=== PATIENT | female | born 1990 ===

== ENCOUNTER → 2024-10-20 13:28 | Outpatient (BNVA) | payer OTHER, SELFPAY | PROVIDERS: PCP Internal Medicine; Visit Provider Physician Assistant Surgical ==

== ENCOUNTER 2025-01-01 08:12 | Outpatient (AMB) | payer OTHER, SELFPAY ==
[2025-01-01 10:15] VITALS: BMI 35.4
--- NOTE | 2025-01-01 10:15 | A.OFFVIS_ITS ---
VS Expanded 01/01/25 10:15 Height 5 ft 7 in Weight 226 lb 4 oz BMI 35.4 Body Fat % 40.9 Body Fat Mass 92.6 Fat Free Mass 133.6 Visceral Fat Rating 9 Body Water % 42.3 Body Water Mass 95.6 Basal Metabolic Rate/Score 1,869 Intake Visit Reasons: TV [employer] [facility]* Allergies No Known Allergies Allergy (Verified 01/01/25 10:16) Medication List - Last Reconciled 01/01/25 by Meño Barahona MD levonorgest-eth.estradiol-iron 0.1 mg-0.02 mg (21)/iron (7) 1 tab PO DAILY omeprazole 20 mg PO DAILY HPI HPI TV [employer] SH[employer]TER MWL*: Details: Start time: 10.11am, End time: 10.56am ?I spent 40 minutes speaking with the patient on the phone plus an additional 5 minutes reviewing and updating records for a total of 45 minutes HPI Comments Details: Previous weight loss efforts: Self diets and exercise Wakes up: 7am, Sleeps: 8.30pm Breakfast: 9am 3/wk: (2 eggs with vegetables) Lunch: skips Dinner: 5-6pm (chicken, fish, potatoes, rice, salad) Snacks: 1-2 before dinner (dried prunes/cherries, nuts, cheese) Exercise: has home treadmill Beverages: Coffee: none, Tea: 3/mth, Soda: none, Juice: none, ETOH: 1-2wk (2 glasses of wine) PFSH Medical History (Updated 01/01/25 @ 10:41 by Meño Barahona MD) Back pain GERD (gastroesophageal reflux disease) BMI 35.0-35.9,adult Obesity Surgical History (Updated 10/20/24 @ 13:49 by Elvia Trujillo CMA) History of back surgery Hx of plastic surgery Family History (Updated 10/20/24 @ 13:50 by Elvia Trujillo CMA) Mother Hypertension Father Diabetes Cancer Daughter No problems noted. Son No problems noted. Social History (Updated 10/20/24 @ 13:50 by Elvia Trujillo CMA) Alcohol intake: current Alcohol intake frequency: holidays/special occasions only Patient Tobacco Use Status: Never used Tobacco Telehealth Telehealth Telehealth Platform: Telephone Location of provider rendering services: practice address Location of patient: address on file Patient Identification confirmed using: Name, : Yes Telehealth method: voice only Patient verbally consented to treatment: Yes Patient verbally consented to billing insurance company: Yes Patient informed of any privacy concerns related to visit: Yes Minutes spent on Phone/Video with Pt.: 45 Assessment & Plan Assessment & Plan (1) Obesity: Code(s): E66.9 - Obesity, unspecified Category: Medical Qualifiers: Obesity type: due to excess calories Obesity classification: adult class 2 (BMI 35 - 39.9) Serious obesity comorbidity presence: with serious comorbidity Body mass index: BMI 35.0-35.9 Qualified Code(s): E66.812 - Obesity, class 2; E66.01 - Morbid (severe) obesity due to excess calories; Z68.35 - Body mass index [BMI] 35.0-35.9, adult Plan: 1.? Plan for lap sleeve gastrectomy. If diaphragmatic or ventral hernias are present at time of surgery, these will be repaired laparoscopically as well. I emphasized the importance of close follow-up, adherence to instructions and good communication. The surgery does not replace the need to change your lifestlyle which is the cause of the obesity problem. The surgery provides the motivation to try again to change your lifestyle, it reduces the appetite and make the transition to a better lifestyle easier and doubles the amount of weight you would lose compared to doing the lifestyle change without the surg tyson. You will need to be on a liquid diet with protein shakes for 2 weeks before surgery to maximize weight loss and boost your nutritional status to recover better from surgery and also for the first two weeks after surgery to let the stomach heal before we introduce other foods. After the first 2 weeks we will introduce protein bars and soft foods like scrambled eggs, cottage cheese and yogurt and after the 6th week will introduce meat, fish and cooked vegetables in small amounts. Over time you should be able to eat everything in small amounts. Side effects like nausea, vomiting, heartburn or abdominal pain are not common in the practice unless you are not following in the practice. This operation requires lifetime commitment to following in our practice and communication with me. You will much less weight and experience side effects if you don?t communicate or not following in the practice. Complications are rare and in our practice is about 1/10 of the national average. However, you can develop bleeding that may require transfusion (hasn?t happened for year in the practice), you may from complications (we did not have any deaths in the practice) and infections. Infections are usually a result of breakdown in communication or not understanding or following directions correctly. They are difficult to treat, they can happen during the first 6 weeks, they may require to be in the hospital for weeks or even months, not being able to eat by mouth and you may have drains and surgeries to try and correct the issue. Other risks and complications include possible conversion to an open procedure, leaks, small bowel obstruction, blood clots, cardiac, or pulmonary complications, as assistant terminal manager complications such as ulcers, insufficient weight loss and vitamin deficiencies. 1.??Nutritional counseling. Start with one premade PREMIER protein (buy at [employer] or [employer]) shake (mix 4oz of Premier mixed with 4oz low fat unsweetened almond milk each) at 8am-10am, one protein bar (Fit Crunch protein bar, buy at [employer], or [employer]) at 11am-1pm, another premade PREMIER protein shake (mix 4oz of Premier mixed with 4oz low fat unsweetened almond milk each) at 2pm-4pm, dinner at 5pm (8 forks of protein and 8 forks of salad/vegetables) and another [employer] protein bar at 7pm-9pm So you do 2 protein shakes, 2 protein bars and one meal per day. Meal to include lean meat (beef, fish, pork, turkey, chicken), or col[place] yogurt, or egg whites, or beans with a salad with olive oil and fruits (berries, pears, apples, kiwi). Avoid salt, breads, potatoes, rice, pasta, desserts. 3. Each shake would be drunk slowly, like coffee in a period of 2 hours. 4. Cut each bar in 4 pieces and eat each piece in 30min ?to make each bar last 2 hours. 5. I emphasized the importance of measuring accurately the food portion and measure it when serving the food in plate 6. The meal portions include 8 full-size forks of meat and 8 full-size forks of salad. You always eat the meat portion but you can replace up to 4 forks for salad/vegetables with rice, potatoes or pasta, or a fruit ?if you like. The less you do it the better weight loss will be. 7. One full-size fork is what it can be scooped on the fork without falling aside and not what can be bit with the fork. Use regular forks like those you find in a typical restaurant. 8.? Please send me weight measurements with your body composition scale. Always include your diet and exercise plan. 9. Start treadmill with an incline of 0.0 and speed of 2.5. Increase incline by 1 every 3 min to a max incline of 6.0, stay 3min at 6.0 and then return to 0.0 and repeat same steps until you burn 100 calories. Do this 3 times per day for 300 calories per day and daily for 2000 calories per weekin total. Goal is to burn 2000 calories per week on exercise. 10.?It is important of avoiding and for at least 18 months postoperatively and has been discussed at the infosession. 11. Goal is to lose at least 1.5-2lbs per week 12. Goal to lose 10% of your weight before surgery, which is about 22lbs. Ultimate weight goal: 204lbs before surgery 13. Please follow the diet plan exactly without any change. If you don't like something about the plan or you feel hungry you need to communicate with me so I can help you revise the plan. You should not change the plan yourself 14. To be scheduled for EGD to assess the stomach's anatomy. The possibility of biopsies was discussed. Patient needs to avoid use of NSAIDs and aspirin for 1 week prior to EGD. You must be on liquids only the day before your endoscopy. Risks of perforation and bleeding was discussed with the patient. This will be an outpatient procedure with IV sedation. 15. Please do the following test: Check your heart rate at rest (at your sleep). Walk for exactly one mile distance as fast as you can and check your heart rate again as soon as you complete the mile walk. Text me the heart rate at rest and after the walk and the time in minutes and seconds that took you to complete the mile walk. You can use your smartphone's stopwatch to track accurately the time it took to walk the mile. Orders: Orders Insulin Today E66.9 - Obesity, unspecified, K21.9 - Gastro-esophageal reflux disease without esophagitis, Z68.35 - Body mass index [BMI] 35.0-35.9, adult Hemoglobin A1c Today E66.9 - Obesity, unspecified, K21.9 - Gastro-esophageal reflux disease without esophagitis, Z68.35 - Body mass index [BMI] 35.0-35.9, adult Lipid Panel Today E66.9 - Obesity, unspecified, K21.9 - Gastro-esophageal reflux disease without esophagitis, Z68.35 - Body mass index [BMI] 35.0-35.9, adult Comprehensive Met. Panel Today E66.9 - Obesity, unspecified, K21.9 - Gastro- esophageal reflux disease without esophagitis, Z68.35 - Body mass index [BMI] 35.0-35.9, adult Vitamin B12 and Folate Today E66.9 - Obesity, unspecified, K21.9 - Gastro- esophageal reflux disease without esophagitis, Z68.35 - Body mass index [BMI] 35.0-35.9, adult C Reactive Protein Today E66.9 - Obesity, unspecified, K21.9 - Gastro- esophageal reflux disease without esophagitis, Z68.35 - Body mass index [BMI] 35.0-35.9, adult Vitamin B1 Today E66.9 - Obesity, unspecified, K21.9 - Gastro-esophageal reflux disease without esophagitis, Z68.35 - Body mass index [BMI] 35.0-35.9, adult TSH reflex Free T4 Today E66.9 - Obesity, unspecified, K21.9 - Gastro- esophageal reflux disease without esophagitis, Z68.35 - Body mass index [BMI] 35.0-35.9, adult Ferritin Today E66.9 - Obesity, unspecified, K21.9 - Gastro-esophageal reflux disease without esophagitis, Z68.35 - Body mass index [BMI] 35.0-35.9, adult US abdomen comp w elastography Today E66.9 - Obesity, unspecified, K21.9 - Gastro-esophageal reflux disease without esophagitis, Z68.35 - Body mass index [BMI] 35.0-35.9, adult XR chest 2V Today E66.9 - Obesity, unspecified, K21.9 - Gastro-esophageal reflux disease without esophagitis, Z68.35 - Body mass index [BMI] 35.0-35.9, adult H Pylori Breath Test Today E66.9 - Obesity, unspecified, K21.9 - Gastro- esophageal reflux disease without esophagitis, Z68.35 - Body mass index [BMI] 35.0-35.9, adult Complete Blood Count Auto Diff Today E66.9 - Obesity, unspecified, K21.9 - Gastro-esophageal reflux disease without esophagitis, Z68.35 - Body mass index [BMI] 35.0-35.9, adult IRON PROFILE Today E66.9 - Obesity, unspecified, K21.9 - Gastro-esophageal reflux disease without esophagitis, Z68.35 - Body mass index [BMI] 35.0-35.9, adult Zinc Today E66.9 - Obesity, unspecified, K21.9 - Gastro-esophageal reflux disease without esophagitis, Z68.35 - Body mass index [BMI] 35.0-35.9, adult Vitamin A Today E66.9 - Obesity, unspecified, K21.9 - Gastro-esophageal reflux disease without esophagitis, Z68.35 - Body mass index [BMI] 35.0-35.9, adult Vitamin D 25-OH Total Today E66.9 - Obesity, unspecified, K21.9 - Gastro- esophageal reflux disease without esophagitis, Z68.35 - Body mass index [BMI] 35.0-35.9, adult ECG 12 lead EKG Today E66.9 - Obesity, unspecified, K21.9 - Gastro-esophageal reflux disease without esophagitis, Z68.35 - Body mass index [BMI] 35.0-35.9, adult FL upper GI w air Today E66.9 - Obesity, unspecified, K21.9 - Gastro-esophageal reflux disease without esophagitis, Z68.35 - Body mass index [BMI] 35.0-35.9, adult Referrals Behavioral Health Referral E66.9 - Obesity, unspecified, K21.9 - Gastro- esophageal reflux disease without esophagitis, Z68.35 - Body mass index [BMI] 35.0-35.9, adult Nutrition/Dietitian Referral E66.9 - Obesity, unspecified, K21.9 - Gastro- esophageal reflux disease without esophagitis, Z68.35 - Body mass index [BMI] 35.0-35.9, adult
== END 2025-01-01 10:57 | disposition home or self-care (01) ==
LOC: HO.HBS 08:12
PROVIDERS: PCP Internal Medicine; Visit Provider Surgery
DX: E66.9 Obesity, unspecified (principal); Z68.35 Body mass index [BMI] 35.0-35.9, adult
CPT/HCPCS: 99204

== ENCOUNTER 2025-01-05 08:18 | Outpatient (REF) | payer OTHER, SELFPAY ==
--- NOTE | ~2025-01-05 | XR_ITS ---
EXAMINATION: XR CHEST CLINICAL INFORMATION: E66.9 - Obesity, unspecified COMPARISON: None available. TECHNIQUE: 2 views of the chest were obtained. FINDINGS: The cardiac, hilar, and mediastinal contours are normal. The lungs are clear bilaterally. There is no pneumothorax or pleural effusion. There is no focal osseous or soft tissue abnormality. XR/XR chest 2V IMPRESSION: Normal chest. Electronically signed by: Adrian Escobedo MD 01/05/2025 08:59 AM EDT
--- NOTE | 2025-01-05 08:25 | ECG_ITS ---
Test Reason : obs Blood Pressure : */* mmHG Vent. Rate : 85 BPM Atrial Rate : 85 BPM P-R Int : 142 ms QRS Dur : 78 ms QT Int : 408 ms P-R-T Axes : 42 33 26 degrees QTcB Int : 485 ms Normal sinus rhythm Prolonged QT Abnormal ECG No previous ECGs available Referred By: Meño Barahona Electronically Signed By: KAMI PEREZ
[2025-01-05 08:43] LABS: MANUAL DIFF FLAG NO
--- OUTSIDE RECORDS SUMMARY | 2025-01-05 09:05 | XMS_ITS | Clinical Summary ---
Author Organization [facility] Address [address] [place] [phone] Phone Care Team Providers Care Flaring Machine Operator Name Role Phone Pcp, Not Required Primary Care Provider Greta Kemp DO Unavailable + Allergies No known active allergies Medications loratadine (CLARITIN) 10 mg tablet Take 10 mg by mouth daily. Active predniSONE (DELTASONE) 20 MG tablet Take 20 mg by mouth daily. Active cetirizine (ZYRTEC) 10 MG tablet Take 10 mg by mouth daily. Active EPINEPHrine (EPIPEN, ADRENACLICK) 0.3 mg/0.3 mL auto-injector Inject 0.3 mg into the muscle as needed for anaphylaxis . 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 Not on mingo e 09/04/2022 Are you concerned about learning? Not on file 09/04/2022 No 09/04/2022 No 09/04/2022 Digital Access Answer Date Recorded No 10/03/2022 No 10/03/2022 No 10/03/2022 Reliable internet access at home? Not on file 10/03/2022 Device with a working camera? Not on file Comments Unknown Sex and Gender Information Value Date Recorded Sex Assigned at Not on file Legal Sex Female 11:42 AM EDT Gender Identity Not on file Sexual Orientation Not on file Last Filed Vital Signs Vital Sign Reading Time Taken Comments Blood Pressure 115/75 03/12/2017 1:00 PM EDT Pulse 81 03/12/2017 1:00 PM EDT Temperature - - Respiratory Rate - - Oxygen Saturation 99% 03/12/2017 1:00 PM EDT Inhaled Oxygen Concentration - - Weight 85.3 kg (188 lb) 03/12/2017 1:00 PM EDT Height 170.2 cm (5' 7 ) 03/12/2017 1:00 PM EDT Body Mass Index 29.44 03/12/2017 1:00 PM EDT Plan of Treatment Health Maintenance Due Date Last Done Comments Adult Td,Tdap Booster 1990 DEPRESSION SCREENING 2002 HEPATITIS C SCREENING 2008 HIV ONE-TIME SCREENING (18-6 5 YEARS) 2008 PAP SMEAR 2011 COVID-19 VACCINE (2023-2 5 season) 2024 INFLUENZA VACCINE (#1) 2024 SMOKING STATUS SCREENING (On ce After 26 Yrs) Completed 03/12/2017 HEPATITIS A VACCINES Aged Out No long er eligible based on patient's age to complete this topic HIB VACCINES Aged Out No longer eligi ble based on patient's age to complete this topic MENINGOCOCCAL VACCINES (ACWY) Aged Out No longer eligible based on patient's age to complete this topic MENINGOCOCCAL VACCINES (B) Aged Out N o longer eligible based on patient's age to complete this topic PNEUMOCOCCAL VACCINES (0-49 years) Aged Out No longer eligible based on patient's age to complete this topic Medical Devices Not on file Insurance [facility] P[facility] CIGNA PPO CIGNA PPO [employer]IGNA PPO [employer]IG[employer] PPO [employer]IG[employer] PPO [employer]IG[employer] PPO [employer]IG[employer] PPO [employer] PPO Care Teams Flaring Machine Operator Relationship Specialty Start Date End Date Pcp, Not Required [address] [place] [id number] PCP - General 02/22/17 Greta Cummings DO [address] [place] [id number] Consulting Provider Rheumatology 03/12/17 Additional Source Comments The information contained in this document represents components of the legal health record. It is not the complete legal health record.[facility]
--- OUTSIDE RECORDS SUMMARY | 2025-01-05 09:05 | XMS_ITS | Clinical Summary ---
Author Organization [facility] [address] [place] [address] [place] [address] REMBERTO Galarza [phone] Phone Care Team Providers Care Food Sampler Name Role Phone Maia Swanson MD Primary Care Provider [phone] Allergies No known active allergies Medications ibuprofen (ADVIL,MOTRIN) 600 mg tablet Take 1 Tablet by mouth every 6 hours as needed for Pain. 09/22/2022 Active EPINEPHrine (EpiPen 2-Hiram) 0.3 mg/0.3 mL injection Inject 0.3 mL (0.3 mg total) under the skin 1 (one) time for 1 dose. 1 each 08/08/2024 Active cetirizine (ZyrTEC) 10 mg tablet Take 1 tablet (10 mg total) by mouth daily. Active gabapentin (NEURONTIN) 100 mg capsule 3 capsules (300 mg total). 06/30/2024 Active loratadine (CLARITIN) 10 mg tablet Take 1 tablet (10 mg total) by mouth daily. Active levonorgestrel- ethinyl estradiol (SEASONALE) 0.15 mg-30 mcg (91) per tablet Take 1 tablet by mouth 1 (one) time each day. 91 tablet 3 09/25/2024 Active omeprazole (PriLOSEC) [address] capsule TAKE 1 CAPSULE(20 MG) BY MOUTH DAILY. DO NOT CRUSH OR CHEW 90 capsule 1 11/16/2024 Active oxyCODONE (ROXICODONE) 10 mg immediate release tablet Take 1 tablet (10 mg total) by mouth 2 (two) times a day if needed for severe pain. Max Daily Amount: 20 mg 28 tablet 11/16/2024 Active Active Problems Problem Noted Date Diagnosed Date Gastroesophageal reflux disease without esophagi tis 12/30/2022 Chronic midline low back pain with sciatica 08/2021 Assessment & Plan (08/31/2024 4:19 PM EDT): I reviewed the imaging findings in detail with Ms. Sprague specifically discussing the progressive degenerative changes at L4-5 and that I believe what she is experiencing is due to degenerative disc disease and radiculitis. She can have symptoms in either leg with pain numbness or tingling but is most incapacitated by the sudden back pain and spasms when these episodes occur. She has discussed the idea of a lumbar fusion before with Dr. Antony who encouraged her to wait given her young age. We had a lengthy discussion regarding an MIS L4-5 left TLIF, the mechanics of the surgery, the 10 degree loss of motion, the potential risks of the surgery particularly if there is a nonunion and the long-term risk of adjacent segment disease. Though the episodes are severe, they are relatively infrequent and I agree that she should explore other medical options first. I encouraged a trial of aquatic therapy and she would like to be referred back to pain management as she is seeing Dr. Welch in the past. Will make a referral and she is welcome to follow-up with us if things progress. Lumbar disc herniation with radiculopathy 2020 Overview (02/23/2024): Microdiscectomy 04/2021 Urticaria due to cold 12/31/2016 Encounters Date Type Department Care Team Description 11/03/2024 11:00 AM EDT Office Visit Adult [address] [phone] Maia Swanson MD Degeneration of intervertebral disc of lumbar region with discogenic back pain and lower extremity pain (Primary Dx); Encounter for long-term (current) use of high-risk medication 11/03/2024 Telephone Adult [address] [phone] Maia Swanson MD 10/26/2024 9:00 AM EDT Office Visit Adult [address] [phone] Chase Lin PA Chronic midline low back pain with right-sided sciatica (Primary Dx); Lumbar disc herniation with radiculopathy from Last 3 Months Immunizations Name Administration Dates Next Due DTaP (Infanrix) 6wks to less than 7yo ,08/10/1993,10/24/1991,1991 Hepatitis B (Ojwknqq-Y-Qjfqx , Recombivax HB-Adult) 19yo and older 07/09/1999,01/03/1999,12/03/1998 Hepatitis B Pediatric (Enger ix B; Recombivax HB) to less than 20 yo 1990 IPV Inactivated polio (Ipol) 6wks and older 09/22/1994,12/07/1991,10/24/1991,1991 MMR, measles mumps and rubel la Live (Priorix; M-M-R II) 12mo and older 12/03/1998,08/11/1996,08/10/1995,1992,1991 Td Tetanus diptheria (Tdvax) 7yo and older 05/06/2004 Varicella live (Varivax) 12m o and older 12/03/1998 Surgical History Surgery Date Site/Laterality Comments BACK SURGERY 04/2021 PROCEDURE: HISTORICAL BACK SURGERY; COMMENT: Microdiscectomy BELT ABDOMINOPLASTY 2018 PROCEDURE: HISTORICAL TUMMY TUCK; COMMENT: tumy tuck OTHER SURGICAL HISTORY 08/2021 Bilateral PROCEDURE: OK PREPARATION MOULAGE CUSTOM BREAST IMPLANT; COMMENT: Brutus EYE SURGERY 2013 PROCEDURE: HISTORICAL EYE SURGERY; COMMENT: Lasik OTHER SURGICAL HISTORY PROCEDURE: IMPLANT BREAST SILICONE/EQ Medical History Medical History Date Comments Ovarian cyst DX:Ovarian cyst Urticaria DX:Urticaria Family History Medical History Relation Name Comments Other: possible Raynaud Brother 1 Diabetes Father Other cancer Father Breast cancer Maternal Grandmother Other: heart valve surgery Maternal Grandmother Breast cancer Mother age 44 Migraines Mother age 44 Arthritis Paternal Grandfather Breast cancer Paternal Grandmother 30 & 6 0 Colon cancer Neg Hx Ovarian cancer Neg Hx Uterine cancer Neg Hx Relation Name Status Comments Brother 1 Alive Brother 2 Alive Father Alive Maternal Grandmother Mother age 44 Alive Paternal Grandfather Paternal Grandmother Sister 1 Alive Sister 2 Alive Social History Tobacco Use Types Packs/Day Years Used Date Smoking Tobacco: Never Smokeless Tobacco: Never Alcohol Use Standard Drinks/Week Comments Yes 0 (1 standard drink = 0.6 oz pur e alcohol) Comments No Sex and Gender Information Value Date Recorded Sex Assigned at Not on file Legal Sex Female 10:35 AM EST Gender Identity Not on file Sexual Orientation Not on file Obstetrics History Last Filed Vital Signs Vital Sign Reading Time Taken Comments Blood Pressure 108/64 11/03/2024 10:55 AM EDT Pulse 78 11/03/2024 10:55 AM EDT Temperature 36.4 C (97.5 F) 11/03/2024 10:55 AM EDT Respiratory Rate 14 11/03/2024 10:55 AM EDT Oxygen Saturation 98% 11/03/2024 10:55 AM EDT Inhaled Oxygen Concentration - - Weight 103 kg (226 lb) 11/03/2024 10:55 AM EDT Height 170.2 cm (5' 7 ) 11/03/2024 10:55 AM EDT Body Mass Index 35.4 11/03/2024 10:55 AM EDT Plan of Treatment Upcoming Encounters Date Type Department Care Team (Late st Contact Info) Description 02/05/2025 8:00 AM EDT Office Visit Adult Medicine [address] [phone] Chase Lin PA [address] [place] [id number] 03/16/2025 8:30 AM EST Appointment Radiology Department - [address] [phone] Health Maintenance Due Date Last Done Comments DTaP,Tdap,and Td Vaccines (6 - Td or Tdap) 05/06/2014 05/06/2004, 01/26/1995, 08/10/1993, Additional history exists Social Influencers of Health Screening 04/13/2022 COVID-19 Vaccine ( season) 2024 Depression Screening 05/10/2024 Influenza Vaccine (#1) 2025 Cervical Cancer Screening: HPV 01/15/2028 01/14/2023 IPV Vaccines Completed 09/22/1994, 11/09, 10/24/1991, Additional history exists MMR Vaccines Completed 12/03/1998, 08/1996, 08/10/1995, Additional history exists Varicella Vaccines Aged Out 12/03/1998 No longer eligible based on patient's age to complete this topic Hepatitis B Vaccines Completed 07/09/1999, 01/03/1999, 12/03/1998, Additional history exists HIV Screening Completed 02/02/2023 Hepatitis C Screening Completed 02/02/2023 HIB Vaccines Aged Out No longer eligi ble based on patient's age to complete this topic HPV Vaccines Aged Out No longer eligi ble based on patient's age to complete this topic Hepatitis A Vaccines Aged Out No long er eligible based on patient's age to complete this topic Meningococcal ACWY Vaccine Aged Out N o longer eligible based on patient's age to complete this topic Meningococcal B Vaccine Aged Out No l onger eligible based on patient's age to complete this topic Pneumococcal Vaccine: Pediatrics (0 to 5 Years) and At-Risk Patients (6 to 49 Years) Aged Out No longer eligible based on patient's age to complete this topic RSV Immunization Patients Under 20 months Aged Out No longer eligible based on patient's age to complete this topic Procedures Procedure Name Priority Date/Time Associated Diagnosis Comments OPIATES CONFIRMATION, URINE Routine 11/03/2024 11:58 AM EDT Encounter for long-term (current) use of high-risk medication DRUG ABUSE SCREEN EXPANDED WITH REFLEX CONFIRMATION, URINE Routine 11/03/2024 11:58 AM EDT Encounter for long-term (current) use of high-risk medication HEPATITIS C SCREENING Routine 02/02/2023 HIV SCREENING Routine 02/02/2023 HPV Routine 01/14/2023 from Last 3 Months or Most Recently Relevant to Health Maintenance Results * (ABNORMAL) Drug abuse screen expanded with reflex confirmation, urine (11/03/2024 11:58 AM EDT) Amphetamine Screen, Ur Negative Negative LAB CHEMISTRY METHOD 5 4:34 PM [facility] Comment:Certain OTC medicati ons containing ephedrine, phenylephrine, pseudoephedrine and phenylpropanolamine can cause false positive results. Barbiturate Screen, Ur Negative Negative LAB CHEMISTRY METHOD 5 4:34 PM EDT [facility] Benzodiazepine Screen, Ur Negative Negative LAB CHEMISTRY METHOD 5 4:34 PM T [facility] Cocaine Screen, Ur Negative Negative LAB CHEMISTRY METHOD 5 4:34 PM [facility] Opiate Screen, Ur Negative Negative LAB CHEMISTRY METHOD 5 4:34 PM [facility] Cannabinoid (THC) Screen, Ur Negative Negative LAB CHEMISTRY METHOD 5 4:34 PM [facility] Comment:Specimens from patie nts taking pantoprazole sodium (Protonix) have been shown to produce false positive results. Fentanyl, Ur Negative Negative LAB CHEMISTRY METHOD 5 4:34 PM [facility] Oxycodone Screen, Ur Positive(A ) Negative LAB CHEMISTRY METHOD 5 4:34 PM [facility] Urine Urine specimen obtained by clean catch procedure / Unknown Non-blood Collection / Unknown 11/03/2024 11:58 AM EDT 11/03/2024 11:58 AM EDT [facility] - 11/03/2024 4:34 PM EDT Assay cutoffs: Amphetamines 1000 ng/mL Barbiturates 200 ng/mL Benzodiazepines 200 ng/mL Cocaine 300 ng/mL Fentanyl 1 ng/mL Opiates 300 ng/mL Oxycodone 100 ng/mL THC 50 ng/mL Semi-quantitative assay for screening purposes only. Unconfirmed screening result should not be used for non-medical purposes. *POSITIVE RESULTS ARE AUTOMATICALLY SENT FOR ALTERNATE METHOD CONFIRMATION* us Maia Swanson MD LAB URINE ORDERABLES Final Resul t [facility] ([facility]) [facility] [address] [place] [address], * Opiates confirmation, urine (11/03/2024 11:58 AM EDT) Morphine Confirm, Urine Negative ng/mL 11/07/2024 12:36 AM EDT [facility] Codeine Confirm, Urine Negative ng/mL 11/07/2024 12:36 AM EDT [facility] Hydrocodone Confirm, Urine Negative ng/mL 11/07/2024 12:36 AM EDT [facility] Hydromorphone Confirm, Urine Negative ng/mL 11/07/2024 12:36 AM EDT [facility] Oxycodone Confirm, Urine 297 ng/mL 11/07/2024 12:36 AM EDT [facility] Oxymorphone Confirm, Urine 1635 ng/mL 11/07/2024 12:36 AM EDT [facility] Creatinine 224 20 - 250 mg/dL 11/07/2024 12:36 AM EDT [facility] Adulterants Negative 11/07/2024 12:36 AM EDT [facility] Comment: Confirmation (LC/MS/MS) Decision Limits Morphine 25 ng/mL Codeine 25 ng/mL Hydrocodone 25 ng/mL Hydromorphone 25 ng/mL Oxycodone 25 ng/mL Oxymorphone 25 ng/mL Adulterant Decision Limit: General Oxidants 200 ug/mL The adulterant assay tests for General Oxidants, including Chromates and Nitrites. Adulterants are substances either ingested or added directly to a urine specimen to prevent the detection of drug use. If applicable, any drug confirmation testing reported here was developed and the performance characteristics determined by [facility]. This confirmation testing has not been cleared or approved by the FDA. The laboratory is regulated under CLIA as qualified to perform high-complexity testing. This test is used for patient testing purposes. It should not be regarded as investigational or for research. Test performed at [facility], [address] , [place] [address] Marisel Freeman MD, PhD - Complaint Specialist Urine Urine specimen obtained by clean catch procedure / Unknown Non-blood Collection / Unknown 11/03/2024 11:58 AM EDT 11/03/2024 4:34 PM EDT Maia Swanson MD LAB URINE ORDERABLES Final Resul t [facility] [address] [place] [address] * HIV Screening (02/02/2023) Pathologist [facility] HIV Screening Abstracted Historical Provider HEALTH MAINTENANCE Final Result * Hepatitis C Screening (02/02/2023) Pathologist [facility] Hepatitis C Screening Abstracted Historical Provider HEALTH MAINTENANCE Final Result * Cervical Cancer Screening: HPV (01/14/2023) Pathologist [facility] Cervical Cancer Screening: HPV abstracted ,negative Historical Provider HEALTH MAINTENANCE Final Result from Last 3 Months or Most Recently Relevant to Health Maintenance [place] [id number] [facility] [employer] [id number] Care Teams Food Sampler Relationship Specialty Start Date End Date Maia Swanson MD [address] [place] [address] PCP - General Internal Medicine 12/22/21
[2025-01-05 09:16] LABS: Hematocrit 43.6 % (37.0-47.0); Hemoglobin 14.8 g/dl (12.0-16.0); Imm Gran Abs Auto 0.05 X10*3/uL (0.00-0.03); Imm Gran Pct Auto 0.7 % (0.0-0.4); Lymphocytes Absolute Auto 2.1 X10*3/uL (1.2-4.9); Mean Corpuscular HGB Conc 33.9 g/dl (31.0-35.0); Mean Corpuscular Hemoglobin 29.9 pg (27.0-33.0); Mean Corpuscular Volume 88.1 fL (80.0-98.0); NRBC Abs Auto 0.000 X10*3/uL (0.0-0.012); NRBC Pct Auto 0.0 /100WBC (0.0-0.2); Platelet Count 306 X10*3/uL (160-400); Red Blood Count 4.95 X10*6/uL (4.20-5.50); White Blood Count 6.8 X10*3/uL (4.8-10.8)
[2025-01-05 09:48] LABS: Alanine Aminotransferase 45 U/L (0-31); Albumin Level 4.8 g/dL (3.5-5.0); Alkaline Phosphatase 49 U/L (39-117); Anion Gap 16 (12-20); Aspartate Amino Transferase 46 U/L (5-31); Blood Urea Nitrogen 8 mg/dL (9-16); Calcium 9.0 mg/dL (8.4-10.2); Carbon Dioxide 22 mmol/L (22-29); Chloride 108 mmol/L (96-108); Cholesterol 190 mg/dL (<200); Estimated Glomerular Filt Rate > 60; HDL Cholesterol 36 mg/dL (>40); Iron 79 mcg/dL (30-160); Percent Iron Saturation 20 % (15-50); Potassium 3.9 mmol/L (3.3-5.1); Sodium 142 mmol/L (135-145); Total Iron Binding Capacity 389 mcg/dL (228-428); Total Protein 7.7 g/dL (6.5-8.0); Triglycerides 192 mg/dL (<150); Unsaturated Iron Binding 310 ug/dL
[2025-01-05 10:09] LABS: Ferritin 118 ng/mL (10-122)
[2025-01-05 10:19] LABS: Folate 11.0 ng/mL (> or = 4.0); Vitamin B12 424 pg/mL (200-900)
[2025-01-05 10:30] LABS: Hemoglobin A1C 141.6755 umol/L; Total Hemoglobin (HGBA1C) 3826.9116 umol/L
== END 2025-01-05 08:19 | disposition home or self-care (01) ==
LOC: HO.XRAY 08:18
PROVIDERS: PCP Internal Medicine; Visit Provider Surgery
DX: K21.9 Gastro-esophageal reflux disease without esophagitis (principal); E66.9 Obesity, unspecified; Z68.35 Body mass index [BMI] 35.0-35.9, adult; Z13.1 Encounter for screening for diabetes mellitus; Z13.29 Encounter for screening for other suspected endocrine disorder; Z13.0 Encounter for screening for diseases of the blood and blood-forming organs and certain disorders involving the immune mechanism
CPT/HCPCS: 36415; 71046; 80053; 80061; 82306; 82607; 82728; 82746; 83036; 83525; 83540; 84425; 84443; 84590; 84630; 85025; 86140; 93005

== ENCOUNTER → 2025-01-05 08:25 | Outpatient (BNV) | payer OTHER, SELFPAY | PROVIDERS: PCP Internal Medicine; Visit Provider Internal Medicine | DX: R94.31 Abnormal electrocardiogram [ECG] [EKG] (principal) | CPT/HCPCS: 93010 ==

== ENCOUNTER → 2025-01-05 08:42 | Outpatient (BNV) | payer OTHER, SELFPAY | PROVIDERS: PCP Internal Medicine; Visit Provider Radiology Diagnostic Radiology | DX: E66.9 Obesity, unspecified (principal) | CPT/HCPCS: 71046 ==

== ENCOUNTER 2025-01-18 11:47 | Day surgery (SDC) | payer OTHER, SELFPAY ==
--- NOTE | 2025-01-16 13:19 | HO.ANESPROP2 ---
Documented by User: Vannesa Pereira NP 01/16/25 13:20 HPI - Anesthesia Eval Consult details Narrative: 34 yr old female for upper endoscopy [facility] Active Problems Active Problems: All Active Problems (Updated 01/13/25 @ 00:08 by Meño Barahona MD) Vitamin B1 deficiency (Acute) Abnormal EKG (Acute) Back pain (Acute) GERD (gastroesophageal reflux disease) (Acute) BMI 35.0-35.9,adult (Acute) Obesity (Acute) Past Medical History Medical History Abnormal EKG Back pain GERD (gastroesophageal reflux disease) BMI 35.0-35.9,adult Obesity Family History Family History Mother Hypertension Father Diabetes Cancer Daughter No problems noted. Son No problems noted. Surgical History Surgical History History of back surgery Hx of plastic surgery Social History Social History Are you a primary patient care nursing assistant to a significant other at home: No Do you presently have visiting nurse or other home services: No Alcohol intake: current Alcohol intake frequency: does not drink Patient Tobacco Use Status: Never used Tobacco Second Hand Smoke Exposure: No Use of substances other than those prescribed or required for medical reasons: No Have you been hit, kicked, punched, or otherwise hurt by someone within the past year? If so, by whom?: No Are you DNR?: No Advance Directives: No Advance Directives Information Provided: Yes Advance Directives on File: No Patient : No : No Poor oral hygiene: No Meds Allergies Allergy/AdvReac Type Severity Reaction Status Date / Time No Known Allergies Allergy Verified 01/01/25 10:16 Home Medications ?Medication ?Instructions ?Recorded ?Confirmed ?Last Taken ?Type omeprazole 20 mg capsule,delayed 20 mg PO DAILY 10/20/24 01/18/25 Unknown History release levonorgestrel 0.1 mg-ethinyl 1 tab PO DAILY 01/01/25 01/18/25 Unknown History estradiol 0.02 mg (21)/iron (7) tablet Exam Narrative Narrative: EKG 12/2024 Vent. Rate : 85 BPM Atrial Rate : 85 BPM P-R Int : 142 ms QRS Dur : 78 ms QT Int : 408 ms P-R-T Axes : 42 33 26 degrees QTcB Int : 485 ms Normal sinus rhythm Prolonged QT Abnormal ECG No previous ECGs available Documented by User: Tasneem Marcano MD 01/18/25 12:44 PMFSH Past Medical History Medical History Abnormal EKG Back pain GERD (gastroesophageal reflux disease) BMI 35.0-35.9,adult Obesity Family History Family History Mother Hypertension Father Diabetes Cancer Daughter No problems noted. Son No problems noted. Surgical History Surgical History History of back surgery Hx of plastic surgery History of Problems with Anesthesia: No Social History Social History Are you a primary patient care nursing assistant to a significant other at home: No Do you presently have visiting nurse or other home services: No Alcohol intake: current Alcohol intake frequency: does not drink Patient Tobacco Use Status: Never used Tobacco Second Hand Smoke Exposure: No Use of substances other than those prescribed or required for medical reasons: No Have you been hit, kicked, punched, or otherwise hurt by someone within the past year? If so, by whom?: No Are you DNR?: No Advance Directives: No Advance Directives Information Provided: Yes Advance Directives on File: No Patient : No : No Poor oral hygiene: No Meds Allergies Allergy/AdvReac Type Severity Reaction Status Date / Time No Known Allergies Allergy Verified 01/01/25 10:16 Home Medications ?Medication ?Instructions ?Recorded ?Confirmed ?Last Taken ?Type omeprazole 20 mg capsule,delayed 20 mg PO DAILY 10/20/24 01/18/25 Unknown History release levonorgestrel 0.1 mg-ethinyl 1 tab PO DAILY 01/01/25 01/18/25 Unknown History estradiol 0.02 mg (21)/iron (7) tablet Exam Airway Mallampati Class: II TM Dist: >3cm Neck ROM: Full Loose/Missing/Broken Teeth: No Heart: RRR Lungs: CTA Assessment and Plan Assessment Anesthesia Assessment: Anesthesia Plan Discussed and Chart Reviewed Final Anesthetic Review History of Problems with Anesthesia: No NPO: Yes ASA Class: II Final Preanesthetic Review: Meds/Allgs Chart Reviewed, Consent Obtained/Reviewed and Anes Risks/Benef Reviewed Patient Risk: Low Procedure Risk: Intermediate Anesthetic Plan Anesthetic Plan: MAC: Disposition: Standard PACU
--- OUTSIDE RECORDS SUMMARY | 2025-01-16 15:38 | XMS_ITS | Clinical Summary ---
Author Organization [facility] Address [address] [place] [phone] Phone Care Team Providers Care Tree Loader Meat Name Role Phone Pcp, Not Required Primary [...] (18-6 5 YEARS) 2008 PAP SMEAR 2011 INFLUENZA VACCINE (#1) 2024 COVID-19 VACCINE (2023-2 5 season) 2025 SMOKING STATUS SCREENING (On ce After 26 [...] topic Medical Devices Not on file Insurance [facility] PPO CIGNA PPO CIGNA PPO CIGNA PPO CIGNA PPO CIGNA PPO CIGNA PPO CIGNA PPO CIGNA PPO Care Teams Tree Loader Meat Relationship Specialty Start Date End Date Pcp, Not Required [address] [place] [id number] PCP - General 02/22/17 Greta Cummings DO [address] [place] [id number] Consulting Provider Rheumatology 03/12/17 Additional Source Comments The information contained in this document represents components of the legal health record. It is not the complete legal health record.[facility]
--- OUTSIDE RECORDS SUMMARY | 2025-01-16 15:38 | XMS_ITS | Clinical Summary ---
Author Organization [facility] [address] [place] [address] [place] [address] REMBERTO Galarza [phone] Phone Care Team Providers Care Reeler Operator Name Role Phone Maia Swanson MD Primary Care Provider [phone] Allergies No known active allergies Medications ibuprofen [...] 11/03/2024 11:00 AM EDT Office Visit Adult [address] [phone] Maia Swanson MD Degeneration of intervertebral disc of lumbar region with discogenic back pain and lower extremity pain (Primary Dx); Encounter for long-term (current) use of high-risk medication 11/03/2024 Telephone Adult [address] [phone] Maia Swanson MD 10/26/2024 9:00 AM EDT Office Visit Adult [address] [phone] Chase Lin PA Chronic midline low back pain with right-sided sciatica (Primary Dx); Lumbar disc herniation with radiculopathy from Last 3 Months Immunizations Name Administration Dates Next Due DTaP (Infanrix) 6wks to less than 7yo ,08/10/1993,10/24/1991,1991 Hepatitis B (Xljycpv-W-Rpbkz , Recombivax HB-Adult) 19yo and older 07/09/1999,01/03/1999,12/03/1998 [...] [place] PREPARATION MOULAGE CUSTOM BREAST IMPLANT; COMMENT: [employer] EYE SURGERY 2013 PROCEDURE: HISTORICAL EYE SURGERY; [...] 8:00 AM EDT Office Visit Adult Medicine [address] [phone] Chase Lin PA [address] [place] [id number] 03/16/2025 8:30 AM EST Appointment Radiology Department - [address] [phone] Health Maintenance Due Date Last Done Comments DTaP,Tdap,and Td Vaccines (6 - Td or Tdap) 05/06/2014 05/06/2004, 01/26/1995, 08/10/1993, Additional history exists Social Influencers of Health Screening 04/13/2022 Depression Screening 05/10/2024 COVID-19 Vaccine ( season) 2025 Influenza Vaccine (#1) 2025 Cervical Cancer Screening: [...] Procedure Name Priority Date/Time Associated Diagnosis Comments EXTERNAL CLINICAL LAB 01/05/2025 EXTERNAL CLINICAL LAB 01/05/2025 EXTERNAL CLINICAL LAB 01/05/2025 EXTERNAL CLINICAL LAB 01/05/2025 EXTERNAL XRAY REPORT 01/05/2025 EXTERNAL XRAY REPORT 01/05/2025 OPIATES CONFIRMATION, URINE Routine 11/03/2024 11:58 AM EDT Encounter for long-term (current) use of high-risk medication DRUG ABUSE SCREEN EXPANDED WITH REFLEX CONFIRMATION, URINE Routine 11/03/2024 11:58 AM EDT Encounter for long-term (current) use of high-risk medication HEPATITIS C SCREENING Routine 02/02/2023 HIV SCREENING Routine 02/02/2023 HPV Routine 01/14/2023 from Last 3 Months or Most Recently Relevant to Health Maintenance Results * External Xray Report (01/05/2025) Only the most recent of2 resultswithin the time period is included. Anatomical Region Laterality Modality Radiographic Phylicia ging us Provider [facility] XR PROCEDURES Final Result * External clinical lab (01/05/2025) Only the most recent of4 resultswithin the time period is included. Provider [facility] BLOOD ORDERABLES Fin al Result * (ABNORMAL) Drug abuse screen expanded with reflex confirmation, urine (11/03/2024 11:58 AM EDT) Amphetamine Screen, Ur Negative Negative LAB CHEMISTRY METHOD 5 4:34 PM [facility] Comment:Certain OTC medicati ons containing ephedrine, phenylephrine, pseudoephedrine and phenylpropanolamine can cause false positive results. Barbiturate Screen, Ur Negative Negative LAB CHEMISTRY METHOD 5 4:34 PM [facility] Benzodiazepine Screen, Ur Negative Negative LAB CHEMISTRY METHOD 5 4:34 PM [facility] Cocaine Screen, Ur Negative Negative LAB CHEMISTRY METHOD 5 4:34 PM [facility] Opiate Screen, Ur Negative Negative LAB CHEMISTRY METHOD 5 4:34 PM [facility] Cannabinoid (THC) Screen, Ur Negative Negative LAB CHEMISTRY METHOD 5 4:34 PM [facility] Comment:Specimens from patie nts taking pantoprazole sodium (Protonix) have been shown to produce false positive results. Fentanyl, Ur Negative Negative LAB CHEMISTRY METHOD 5 4:34 PM [facility] Oxycodone Screen, Ur Positive(A ) Negative LAB CHEMISTRY METHOD 5 4:34 PM [facility] Urine Urine specimen obtained by clean catch procedure / Unknown Non-blood Collection / Unknown 11/03/2024 11:58 AM EDT 11/03/2024 11:[address] [facility] - 11/03/2024 4:34 PM EDT Assay [...] MD LAB URINE ORDERABLES Final Resul t [facility] [address] [place] [address], [place] [phone] * Opiates confirmation, urine (11/03/2024 11:58 AM [...] and the performance characteristics determined by [facility]. This confirmation testing has not been cleared or approved by the FDA. The laboratory is regulated under CLIA as qualified to perform high-complexity testing. This test is used for patient testing purposes. It should not be regarded as investigational or for research. Test performed at [facility], [address], [place] [address] Marisel Freeman MD, PhD - [facility]cm[facility] Specialist Urine Urine specimen obtained by clean catch procedure / Unknown Non-blood Collection / Unknown 11/03/2024 11:58 AM EDT 11/03/2024 4:34 PM EDT Maia Swanson MD LAB URINE ORDERABLES Final Resul t [facility] [address] [place] [address] * HIV Screening (02/02/2023) [facility] HIV Screening Abstracted Result [facility] Historical Provider HEALTH MAINTENANCE Final Result * Hepatitis C Screening (02/02/2023) [facility] Hepatitis C Screening Abstracted Historical Provider HEALTH MAINTENANCE Final Result * Cervical Cancer Screening: HPV (01/14/2023) [facility] Cervical Cancer Screening: HPV abstracted ,negative Result [facility] Historical Provider HEALTH MAINTENANCE Final Result from Last 3 Months or Most Recently Relevant to Health Maintenance Insurance [facility] Care Teams Reeler Operator Relationship Specialty Start Date End Date Maia Swanson MD [address] [place] [address] REMBERTO GALARZA [phone] PCP - General Internal Medicine 12/22/21
[2025-01-18 12:08] VITALS: BMI 34.6
[2025-01-18 12:15] VITALS: BP 123/76; PULSE 96; RESP 16; TEMP 37; O2SAT 99
[2025-01-18 12:16] LABS: UPreg QC Valid YES
--- NOTE | 2025-01-18 12:24 | MHC.SHP ---
Pre-Procedural Eval Section A - 24 Hr Update-Section A only Date of Service: 01/18/25 The patient is an INPATIENT: No The patient has been examined within 24 hours of the surgical procedure. The History & Physical has been completed within 30 days and I have reviewed it.: Yes Section B - Complete if H&P > 30 days Chief Complaint: Obesity, unspecified Details of Present Illness: GERD Relevant Family History (Specify if Yes): No Relevant Social History: None Present Medications: None Medical History: No relevant PMH History of Previous Operations: No relevant previous surgery Allergies: Allergies Allergy/AdvReac Type Severity Reaction Status Date / Time No Known Allergies Allergy Verified 01/01/25 10:16 Review of Systems Sugical H&P ROS: Negative: Constitution, Cardiovascular, Respiratory, Neurological, Psychiatric, Hem-Onc, Allergic/Immunologic, Gastrointestinal, Genitourinary, Musculoskeletal, Integumentary, Endocrine and Eyes/Ears/Nose/Throat Exam Surgical H&P Exam: Normal: HEENT, Normal: Heart, Normal: Lungs, Normal: Extremities, Normal: Abdomen, Normal: Skin and Normal: Neurological Plan Diagnosis/Plan: Unchanged (EGD to assess etiology of GERD. Risks of bleeding and perforation were discussed with the patient and she is in agreement with the plan.) I have reviewed the history and physical and performed a pertinent physical examination on my patient. No changes have occurred unless specified. Time Spent With Patient Time: Total time managing care of this patient today ____ minutes.
--- NOTE | 2025-01-18 12:25 | P.BOP_ITS ---
Brief Operative Note Date of Service: 01/18/25 Pre-op diagnosis: GERD Post-op diagnosis: same Procedure: PROCEDURE DATE: 01/18/2025 PREOPERATIVE DIAGNOSIS: GERD POSTOPERATIVE DIAGNOSIS: ?Same as above. Moderate size fixed diaphragmatic hernia PROCEDURE: Pmzcuqim-akzuot-hdgpwjvasdtp with biopsies Surgeon: ?Veto Barahoan M.D.. Ph.D. Electric Wheelchair Repairer: None ? Anesthesia: IV sedation Estimated blood loss: ?Minimal FINDINGS AND PROCEDURE: ? OPERATIVE INDICATIONS: ?The patient is a 34 year old female known to me who is interested in bariatric surgery. The patient has GERD. Based on this information I recommended an upper endoscopy to evaluate the patient's symptoms. Risks and complications of the surgery were discussed with the patient in advance particularly the possibility of perforation or bleeding that may require surgical intervention. The patient understood the risks and was in agreement with the plan. ? PROCEDURE: After informed consent was obtained by the patient, the patient was ?transferred to the Operating Room and was placed in the supine position.? After successful induction of IV sedation, a mouth block was inserted and the patient was placed in the left lateral decubitus position. An upper endoscopy was performed next, the oropharynx and esophagus appeared within the normal limits. There was a 3-4 moderate size fixed hiatal hernia. The z-line was smooth. Two biopsies were obtained from the distal esophagus 2-3 cm proximal to the GE junction and two additional biopsies from the GE junction. The stomach was entered and it appeared to be of normal size. There was no gastritis. There was no stricture or ulcer. A biopsy was obtained from the gastric fundus and the antrum. No significant bleeding was noted from any of the biopsy sites. Retroflexion of the scope confirmed the presence of a moderate size diaphragmatic hernia. The scope was then advanced into the duodenum which appeared to be normal as well. At that point the duodenum ?and the stomach were decompressed and the scope was withdrawn from the patient's mouth. The patient extubated and was transferred in stable condition to the Recovery Room for further care. I was present and performed all steps of the procedure. There were no residents to assist with this case. Veto Barahona M.D., Ph.D. Surgeon: Meño Barahona MD Was an Electric Wheelchair Repairer used for this Procedure?: No Estimated blood loss (mL): 0 IV fluids (mL): 400 Urine output (mL): 0 (No Eubanks to record output) Pathology: other (1) antrum x1, 2) fundus x1, 3) GE junction x2, 4) distal esophagus x2) Condition: stable Disposition: PACU
[2025-01-18] MEDS: Lactated Ringers 1,000 ML 100 ML IVCONT (12:45)
[2025-01-18 13:13] VITALS: BP 112/58; PULSE 76; RESP 18; TEMP 36.2; O2SAT 100
[2025-01-18 13:28] VITALS: BP 126/76; PULSE 81; RESP 16; TEMP 525; TEMP 977; O2SAT 98
== END 2025-01-18 14:34 | disposition home or self-care (01) ==
PROVIDERS: Nurse Practitioner; PCP Internal Medicine; Visit Provider Surgery
PROC: 0DJ08ZZ Inspection of Upper Intestinal Tract, Via Natural or Artificial Opening Endoscopic (ICD-10-PCS; CPT 43235; principal; 2025-01-18 13:10)
DX: K21.9 Gastro-esophageal reflux disease without esophagitis (principal); E66.812 Obesity, class 2; Z68.35 Body mass index [BMI] 35.0-35.9, adult; K29.50 Unspecified chronic gastritis without bleeding; B96.81 Helicobacter pylori [H. pylori] as the cause of diseases classified elsewhere; K20.80 Other esophagitis without bleeding; K44.9 Diaphragmatic hernia without obstruction or gangrene; M54.9 Dorsalgia, unspecified; Z79.899 Other long term (current) drug therapy; Z98.890 Other specified postprocedural states
CPT/HCPCS: 43239; 81025; 88305; 88313; 88342; J2003; J2250; J2704

== ENCOUNTER → 2025-01-18 11:47 | Outpatient (BNV) | payer OTHER, SELFPAY | PROVIDERS: PCP Internal Medicine; Visit Provider Surgery | DX: K21.9 Gastro-esophageal reflux disease without esophagitis (principal) | CPT/HCPCS: 43239 ==

== ENCOUNTER 2025-01-29 13:08 | Outpatient (AMB) | payer OTHER, SELFPAY ==
--- NOTE | 2025-01-29 13:05 | A.OFFWM_ITS ---
Intake Intake Visit Reasons: TV BH Intake Allergies No Known Allergies Allergy (Verified 01/01/25 10:16) [facility] Medical History Abnormal EKG Back pain GERD (gastroesophageal reflux disease) BMI 35.0-35.9,adult Obesity Surgical History History of back surgery Hx of plastic surgery Family History Mother Hypertension Father Diabetes Cancer Daughter No problems noted. Son No problems noted. Social History Are you a primary nonfarm animal caretaker to a significant other at home: No Do you presently have visiting nurse or other home services: No Alcohol intake: current Alcohol intake frequency: does not drink Patient Tobacco Use Status: Never used Tobacco Second Hand Smoke Exposure: No Behavioral Health Assessment Weight Management Therapy Therapy Notes Details PT is a 34 years old female, who presents for initial visit to start BH assessment as part of surgical weight loss program. PT was initially referred by her PCP due to a history of back issues worsened by her weight. Presenting Concerns Referral Source WMP-Provider Reason for referral Completion of behavioral health assessment as part of process for weight-loss surgery. Precipitating Event Obesity Living Situation Current Living Situation Own At risk of losing current housing? No Satisfied with current living situation? Yes Comments PT lives with her and 2 children. Food/Weight/Diet Expectations of change PT started the program on 01/02/2025 at 226 lbs, and the initial goal is to lose 10% of their weight before surgery, which is about 22lbs. Ultimate weight goal: 204lbs before surgery. PT reports her recent weight was 209Lbs as of 01/26/2025. Patient goals are PT is implementing the following: Current meal plan: 2 protein shakes, 2 protein bars, and one meal per day (8FT/8FT). Exercise plan: burn 2000 calories per week on the treadmill. scale: yes Communication with/ provider: Fridays. Social History Family history and relationship PT has been since 2008; they have two kids, a 15-year-old daughter and a 13-year-old boy. Her father 2 years ago, mother is alive. She has 3 siblings. PT reports she has good family relationships. 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 Developmental history and status mobility issues Social support Family, mainly her , sister and mother. Community support None Denominational/Spirituality Buddhism/Yazidi. Cultural/Ethnic information . PT was born in [facility]. PT speaks Vincentian. Legal Involvement and History Current or historical involvement with the legal system? None reported Education Highest grade completed 9th grade, GED. 1 year college for child development. Preferred learning style Visual Currently enrolled in educational program? No Interested in further educational program? Yes Educational Interests/Skills Wants to enroll in a Bachelor's in Education. 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 No Meaningful activities Crafting, cooking. Financial Situation Describe current financial situation Comfortable Financial assistance? None Service Service? No Mental Health and Addiction Treatment Current/Past substance abuse? No Comments Alcohol: socially, on weekends, 1-3 glasses of wine. Cigarettes/Tobacco: None. Cannabis/Edibles: None. Current/Past addictive behavior concerns? No Psychiatric history PT received counseling briefly after her father . Currently not in any type of MH treatment. PT denies ever being in crisis or inpatient for mental health. There is no history and/or current concern about SI/SA and self-harm or other harm. Medical and Physical Health Summary Additional Medical History not covered in history None aditional Sexual History concerns None reported Physical exam in the last year? Yes Pain Screening Current pain? No Pain in the last few months? Yes Comments Back pain. PT had back surgery in 2020 due to herniated disc. From october-november she had severe back pain, was unable to walk and got prescribed Oxycodone, currently better. Medications Is the patient compliant with medications? Yes Does the patient have Mckoy Guardian in place? Not applicable Does the patient use complimentary health approaches? No Trauma/Abuse History History of trauma? No Questionnaires PHQ-9 Over the last 2 weeks, how often have you been bothered by any of the following problems? 1. Little interest or pleasure in doing things: more than half the days 2. Feeling down, depressed, or hopeless: nearly every day 3. Trouble falling or staying asleep, or sleeping too much: more than half the days 4. Feeling tired or having little energy: more than half the days 5. Poor appetite or overeating: more than half the days 6. Feeling bad about yourself - or that you are a failure or have let yourself or your family down: several days 7. Trouble concentrating on things, such as reading the newspaper or watching television: more than half the days 8. Moving or speaking so slowly that other people could have noticed. Or the opposite - being so fidgety or restless that you have been moving around a lot more than usual: several days 9. Thoughts that you would be better off or of hurting yourself in some way: not at all Total score: 15 Depression Screening Interpretation: Positive (From new Pt pack - New one will be administered at next cathy) Depression Screening Done: Yes Source: Developed by Drs. Kenneth Artis, Herminia Cain, Amish Chapman and colleagues, with an educational devika from [employer]. Assessment & Plan Assessment & Plan (1) Adjustment disorder: Code(s): F43.20 - Adjustment disorder, unspecified (2) Pre-bariatric surgery psychological evaluation: Code(s): Z71.89 - Other specified counseling Plan Patient was not cleared today as the assessment remains incomplete. The evaluation process will continue at the next visit. At the next appointment, a new PHQ-9 will be administered to asses symptoms, and the Binge Eating Scale (BES) will be reviewed. Next appointment is scheduled for 02/12/2025 at 1:00 pm via video. Telehealth Telehealth Telehealth Platform: [employer] Location of provider rendering services: other (Home office. [place], [place]) Location of patient: address on file Patient Identification confirmed using: Name, : Yes Telehealth method: video Patient verbally consented to treatment: Yes Patient verbally consented to billing insurance company: Yes Patient informed of any privacy concerns related to visit: Yes Minutes spent on Phone/Video with Pt.: 60 Coding Level of Care Code New Pt Tele Psy Diag Eval (24742) Patient Type New Diagnoses Adjustment disorder F43.20 Pre-bariatric surgery psychological evaluation Z71.89 Time Spent (min) 60
== END 2025-01-29 14:01 | disposition home or self-care (01) ==
LOC: HO.HBST 13:08
PROVIDERS: PCP Internal Medicine; Visit Provider Counselor Mental Health
DX: F43.20 Adjustment disorder, unspecified (principal); Z71.89 Other specified counseling
CPT/HCPCS: 90791

== ENCOUNTER 2025-02-12 13:07 | Outpatient (AMB) | payer OTHER, SELFPAY ==
--- NOTE | 2025-02-12 13:05 | MHC.WMTHER ---
Intake Intake Visit Reasons: VIDEO Intake Part 2 Allergies No Known Allergies Allergy (Verified 01/01/25 10:16) [facility] Medical History Abnormal EKG Back pain GERD (gastroesophageal reflux disease) BMI 35.0-35.9,adult Obesity Surgical History History of back surgery Hx of plastic surgery Family History Mother Hypertension Father Diabetes Cancer Daughter No problems noted. Son No problems noted. Social History Are you a primary career based intervention coordinator to a significant other at home: No Do you presently have visiting nurse or other home services: No Alcohol intake: current Alcohol intake frequency: does not drink Patient Tobacco Use Status: Never used Tobacco Second Hand Smoke Exposure: No Behavioral Health Assessment Weight Management Therapy Therapy Notes Details PT is a 34 years old female, who presents for s second visit to complete assessment as part of surgical weight loss program. PT was initially referred by her PCP due to a history of back issues worsened by her weight. Presenting Concerns Referral Source WMP-Provider Reason for referral Completion of behavioral health assessment as part of process for weight-loss surgery. Precipitating Event Obesity Living Situation Current Living Situation Own At risk of losing current housing? No Satisfied with current living situation? Yes Comments PT lives with her and 2 children. Food/Weight/Diet Expectations of change PT started the program on 01/02/2025 at 226 lbs, and the initial goal is to lose 10% of their weight before surgery, which is about 22lbs. Ultimate weight goal: 204lbs before surgery. PT reports her recent weight was 209Lbs as of 01/26/2025 Most recent on 02/10/25 was 206.2Lbs PT is implementing the following: Current meal plan: 2 protein shakes, 2 protein bars, and one meal per day (8FT/8FT). Exercise plan: burn 2000 calories per week on the treadmill. scale: yes Communication with/ provider: Fridays. History/Relationship with food Patient denies stress or emotional eating. Reports consistently ordering takeout on weekends. Denies consuming larger portions, but notes that she typically limits her initial intake and often returns for a second serving. Example of meals before starting the program: Breakfast: skip Lunch: salad Dinner: rice or potatoes, some sort of meat, and a salad. Snacks: Nuts, chips. Drinks/Liquids: Coffee: none. Soda: none. Energy drinks: 1-2 a month. Juice: none. Alcohol: 1-3 drinks on weekends. Water: 3-5 cups at day. History/Relationship with weight Patient denies a history of childhood obesity but reports being overweight from an early age, weighing approximately 180 lbs in high school. She states she has consistently struggled with weight management, with increased difficulty losing weight since her 30s. Significant weight gain occurred during pregnancies, particularly after her second child, which was complicated by the development of back issues. Over the past 10 years, her weight has ranged from a low of 140 lbs to a high of 226 lbs. History/Relationship with dieting Patient reports a history of engaging in water fasting for periods ranging from 15 to 30 days. She has also practiced restrictive eating patterns, including eliminating fast food from her diet. Additionally, she incorporates exercise as part of her weight management efforts. Binge Eating Do you frequently eat large amounts of food in short periods of time, not feeling physically hungry? No Do you feel out of control when you eat a large amount of food in a short period of time? No Do you eat large amounts of food rapidly and typically alone? No Night Eating Do you wake up at least once during the night to eat? No If you wake up in the night, do you find that it is necessary to eat something in order to fall back asleep? No Do you have little or no appetite in the morning and feel very hungry in the evening, often overeating between dinner and when you go to bed? No Social History Family history and relationship PT has been since 2008; they have two kids, a 15-year-old daughter and a 13-year-old boy. Her father 2 years ago, mother is alive. She has 3 siblings. PT reports she has good family relationships. 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 Developmental history and status mobility issues Social support Family, mainly her , sister and mother. Community support None Synagogue/Spirituality Amish/Christian. Cultural/Ethnic information . PT was born in [facility]. PT speaks [place]. Legal Involvement and History Current or historical involvement with the legal system? None reported Education Highest grade completed 9th grade, GED. 1 year college for child development. Preferred learning style Visual Currently enrolled in educational program? No Interested in further educational program? Yes Educational Interests/Skills Wants to enroll in a Bachelor's in Education. 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 No Meaningful activities Crafting, cooking. Financial Situation Describe current financial situation Comfortable Financial assistance? None Service Service? No Mental Health and Addiction Treatment Current/Past substance abuse? No Comments Alcohol: socially, on weekends, 1-3 glasses of wine. Cigarettes/Tobacco: None. Cannabis/Edibles: None. Current/Past addictive behavior concerns? No Psychiatric history PT received counseling briefly after her father . Currently not in any type of MH treatment. PT denies ever being in crisis or inpatient for mental health. There is no history and/or current concern about SI/SA and self-harm or other harm. Medical and Physical Health Summary Additional Medical History not covered in history None aditional Sexual History concerns None reported Physical exam in the last year? Yes Pain Screening Current pain? No Pain in the last few months? Yes Comments Back pain. PT had back surgery in 2020 due to herniated disc. From october-november she had severe back pain, was unable to walk and got prescribed Oxycodone, currently better. Medications Is the patient compliant with medications? Yes Does the patient have Mckoy Guardian in place? Not applicable Does the patient use complimentary health approaches? No Trauma/Abuse History History of trauma? No Questionnaires PHQ-9 Over the last 2 weeks, how often have you been bothered by any of the following problems? 1. Little interest or pleasure in doing things: not at all 2. Feeling down, depressed, or hopeless: not at all 3. Trouble falling or staying asleep, or sleeping too much: not at all 4. Feeling tired or having little energy: not at all 5. Poor appetite or overeating: not at all 6. Feeling bad about yourself - or that you are a failure or have let yourself or your family down: not at all 7. Trouble concentrating on things, such as reading the newspaper or watching television: not at all 8. Moving or speaking so slowly that other people could have noticed. Or the opposite - being so fidgety or restless that you have been moving around a lot more than usual: not at all 9. Thoughts that you would be better off or of hurting yourself in some way: not at all Total score: 0 Depression Screening Interpretation: Negative Depression Screening Done: Yes 80755 - PHQ-9 Billing: Yes Source: Developed by Drs. Kenneth Artis, Herminia Cain, Amish Chapman and colleagues, with an educational devika from [employer]. Binge Eating Scale Group 1 A. I don't feel self-conscious about my wt. or body size when I'm with others. B. I feel concerned about how I look to others, but it normally does not make me fell disappointed with myself C. I do get self-conscious about my appearance and wt. which makes me feel disappointed in myself. D. I feel very self-conscious about my wt. and frequently I feel intense shame and disgust for myself. I try to avoid social contacts because of my self-consciousness. Response Group 1: B Group 2 A. I don't have any difficulty eating slowly in the proper manner. B. Although I seem to gobble down foods, I don't end up feeling stuffed because of eating to much. C. At times, I tend to eat quickly and then, I feel uncomfortably full afterwards. D. I have the habit of bolting down my food, without really chewing it. When this happens I usually feel uncomfortably stuffed because I've eaten to much. Response Group 2: C Group 3 A. I feel capable to control my eating urges when I want to. B. I feel like I have failed to control my eating more than the average person. C. I feel utterly helpless when it comes to feeling in control of my eating urges. D. Because I feel so helpless about controlling my eating I have become very desperate about trying to get control. Response Group 3: A Group 4 A. I don't have the habit of eating when I'm bored. B. I sometimes eat when I'm bored, but often I'm able to get busy and get my mind off food. C. I have a regular habit of eating when I'm bored, but occasionally, I can use some other activity to get my mind off eating. D. I have a strong habit of eating when I'm bored. Nothing seems to help me breath the habit. Response Group 4: A Group 5 A. I'm usually physically hungry when I eat something. B. Occasionally, I eat something on impulse even though I really am not hungry. C. I have the regular habit of eating foods, that I might not really enjoy, to satisfy a hungry feeling even though physically, I don't need the food. D. Although I'm not physically hungry, I get a hungry feeling in my mouth that only seems to be satisfied when I eat a food, like sandwich, that fills my mouth. Sometimes, when I eat the food to satisfy my mouth hunger, I then spit the food out so I won't gain weight. Response Group 5: B Group 6 A. I don't feel any guilt or self-hate after I overeat. B. After I overeat, occasionally I feel guilt or self-hate. C. Almost all the time I experience strong guilt or self-hate after I overeat. Response Group 6: B Group 7 A. I don't lose total control of my eating when dieting even after periods when I overeat. B. Sometimes when I eat a forbidden food on a diet, I feel like I blew it and eat even more. C. Frequently, I have the habit of saying to myself, I've blown it now, why not go all the way, when I overeat on a diet. When that happens I eat more. D. I have a regular habit of starting a strict diets for myself but I break the diets by going on an eating binge. My life seems to be either a feast or famine. Response Group 7: B Group 8 A. I rarely eat so much food that I feel uncomfortably stuffed afterwards. B. Usually about once a month, I each such a quantity of food, I end up feeling very stuffed. C. I have regular periods during the month when I eat large amounts of food, either at mealtime or at snacks. D. I eat so much food that I regularly feel quite uncomfortable after eating and sometimes a bit nauseous. Response Group 8: B Group 9 A. My level of calorie intake does not go up very high or go down very low on a regular basis. B. Sometimes after I overeat, I will try to reduce my caloric intake to almost nothing to compensate for the excess calories I've eaten. C. I have a regular habit of overeating during the night. It seems that my routine is not to be hungry in the morning but overeat in the evening. D. In my adult years, I have had week-long periods where I practically starve myself. This follows periods when I overeat. It seems I live a life of either feast or famine. Response Group 9: B Group 10 A. I usually am able to stop eating when I want to. I know when enough is enough. B. Every so often, I experience a compulsion to eat which I can't seem to control. C. Frequently, I experience strong urges to eat which I seem unable to control, but at other times I can control my eating urges. D. I feel incapable of controlling urges to eat. I have a fear of not being able to stop eating voluntarily. Response Group 10: B Group 11 A. I don't have any problem stopping eating when I feel full. B. I usually can stop eating when I feel full but occasionally overeat leaving me feeling uncomfortably stuffed. C. I have a problem stopping eating once I start and usually I feel uncomfortably stuffed after I eat a meal. D. Because I have a problem not being able to stop eating when I want, I sometimes have to induce vomiting to relieve my stuffed feeling. Response Group 11: B Group 12 A. I seem to eat just as much when I'm with others, Family social gatherings as when I'm by myself. B. Sometimes, when I'm with other persons, I don't eat as much as I want to eat because I'm self-conscious about my eating. C. Frequently, I eat only a small amount of food when others are present, because I'm very embarrassed about my eating. D. I feel so ashamed about overeating that I pick times to overeat when I know no one will see me. I feel like a closet eater. Response Group 12: B Group 13 A. I eat three meals a day with only an occasional between meal snack. B. I eat 3 meals a day, but I also normally snack between meals. C. When I am snacking heavily, I get in the habit of skipping regular meals. D. There are regular periods when I seem to be continually eating, with no planned meals. Response Group 13: C Group 14 A. I don't think much about trying to control unwanted eating urges. B. At least some of the time, I feel my thoughts are pre-occupied with trying to control my eating urges. C. I feel that frequently I spend much time thinking about how much I ate or about trying not to eat anymore. D. It seems to me that most of my waking hours are pre-occupied by thoughts about eating or not eating. I feel like I'm constantly struggling not to eat. Response Group 14: B Group 15 A. I don't think about food a great deal. B. I have strong craving for food but they last only for brief periods of time. C. I have days when I can't seem to think about anything else but food. D. Most of my days seem to be pre-occupied with thoughts about food. I feel like I live to eat. Response Group 15: A Group 16 A. I usually know whether or not I'm physically hungry. I take the right portion of food to satisfy me. B. Occasionally, I feel uncertain about knowing whether or not I'm physically hungry. A these times it's hard to know how much food I should take to satisfy me. C. Even though I might know how many calories I should eat, I don't have any idea what is a normal amount of food for me. Response Group 16: C Binge Eating Score: 16 Score less than 17 Minimal Risk Score between 18-26 Moderate Risk Score between 27-46 High Risk Assessment & Plan Assessment & Plan (1) Adjustment disorder: Code(s): F43.20 - Adjustment disorder, unspecified (2) Pre-bariatric surgery psychological evaluation: Code(s): Z71.89 - Other specified counseling Plan Following a comprehensive behavioral health assessment?including review of the Binge Eating Scale, PHQ-9, mental status evaluation, and patient self-report?there are currently no behavioral health contraindications to proceeding with bariatric surgery. The patient demonstrates appropriate insight, motivation, and psychological readiness for the procedure. No active psychiatric symptoms or maladaptive eating behaviors were identified that would impede surgical outcomes at this time. The patient is cleared from a behavioral health perspective to proceed with bariatric surgery and documentation can be submitted for insurance approval as indicated. PT will return for a follow-up behavioral health visit 1?4 weeks postoperatively to monitor psychological adjustment, reinforce coping strategies, and screen for any emerging concerns such as mood changes, adjustment difficulties, or disordered eating patterns. Additional behavioral health support will be provided as needed based on postoperative assessment. Next cathy: 1-4 weeks PO. Telehealth Telehealth Telehealth Platform: [employer] Location of provider rendering services: other (Home office. [place], [place]) Location of patient: address on file Patient Identification confirmed using: Name, : Yes Telehealth method: video Patient verbally consented to treatment: Yes Patient verbally consented to billing insurance company: Yes Patient informed of any privacy concerns related to visit: Yes Minutes spent on Phone/Video with Pt.: 55 Coding Level of Care Code Established Pt Tele Psytx >53 mins ([id number]) Patient Type Established Diagnoses Adjustment disorder F43.20 Pre-bariatric surgery psychological evaluation Z71.89 Additional Codes PHQ-9 - 66307 - PHQ-9 Billing: Yes ([id number]) Time Spent (min) 55
--- OUTSIDE RECORDS SUMMARY | 2025-02-12 15:30 | XMS_ITS | Clinical Summary ---
Author Organization Located Within [facility] Address [address] [place] [phone] Phone Care Team Providers Care Tankage Grinder Operator Name Role Phone Pcp, Not Required [...] 2011 INFLUENZA VACCINE (#1) 2024 COVID-19 VACCINE (2024-2 6 season) 2025 SMOKING STATUS SCREENING (On ce [...] topic Medical Devices Not on file Insurance [employer] P[employer]NA PPO [employer]IGNA PPO CIGNA PPO [employer]IG[employer] PPO CIG[employer] PPO CIG[employer] PPO [employer]IG[employer] PPO [employer]IG[employer] PPO Care Teams Tankage Grinder Operator Relationship Specialty Start Date End Date Pcp, Not Required [address] [place] [id number] PCP - General 02/22/17 Greta Cummings DO [address] [place] [id number] Consulting Provider Rheumatology 03/12/17 Additional Source Comments The information contained in this document represents components of the legal health record. It is not the complete legal health record.Located Within [facility]
--- OUTSIDE RECORDS SUMMARY | 2025-02-12 15:30 | XMS_ITS | Clinical Summary ---
Author Organization [facility] [address] [place] [address] [place], [place] [address]y [place]ERTO Galarza [phone] Phone Care Team Providers Care Concrete Block Layer Name Role Phone Maia Swanson MD Primary Care Provider [phone] Allergies No known active allergies Medications ibuprofen (ADVIL,MOTRIN) 600 mg tablet Take 1 Tablet by mouth every 6 hours as needed for Pain. 3 Active EPINEPHrine (EpiPen 2-Hiram) 0.3 mg/0.3 mL injection Inject 0.3 mL (0.3 mg total) under the skin 1 (one) time for 1 dose. 1 each 5 Active cetirizine (ZyrTEC) 10 mg tablet Take 1 tablet (10 mg total) by mouth daily. Active gabapentin (NEURONTIN) 100 mg capsule 3 capsules (300 mg total). 5 Active levonorgestrel- ethinyl estradiol (SEASONALE) 0.15 mg-30 mcg (91) per tablet Take 1 tablet by mouth 1 (one) time each day. 91 tablet 3 5 Active omeprazole (PriLOSEC) [address] capsule TAKE 1 CAPSULE(20 MG) BY MOUTH DAILY. DO NOT CRUSH OR CHEW 90 capsule 1 5 Active oxyCODONE (ROXICODONE) 10 mg immediate release tablet Take 1 tablet (10 mg total) by mouth 2 (two) times a day if needed for severe pain. Max Daily Amount: 20 mg 28 tablet 5 Active thiamine 100 mg tablet Take 1 tablet (100 mg total) by mouth 1 (one) time each day. 5 Active loratadine (CLARITIN) 10 mg tablet Take 1 tablet (10 mg total) by mouth daily. 02/06/20 25 Discontinu ed(Therapy completed) Active Problems Problem Noted Date Diagnosed Date [...] Encounters Date Type Department Care Team Description 02/05/2025 11:30 AM EDT Office Visit Adult Medicine [address] [phone] Chase Lin PA Degeneration of intervertebral disc of lumbar region with discogenic back pain and lower extremity pain (Primary Dx); Encounter for long-term (current) use of high-risk medication from Last 3 Months Immunizations Immunization Administration Dates Next Due DTaP (Infanrix) 6wks to less than 7yo ,08/10/1993,10/24/1991,1991 Hepatitis B (Wmwjcuk-Y-Kxgct , Recombivax HB-Adult) 19yo and older 07/09/1999,01/03/1999,12/03/1998 [...] tuck OTHER SURGICAL HISTORY 08/2021 Bilateral PROCEDURE: [place] PREPARATION MOULAGE CUSTOM BREAST IMPLANT; COMMENT: [place] [facility] 2013 PROCEDURE: HISTORICAL EYE SURGERY; [...] Date Smoking Tobacco: Never Smokeless Tobacco: Never Tobacco Cessation:Counseling Given: Not Answered Alcohol Use Standard Drinks/Week Comments Yes 0 (1 standard drink = 0.6 oz pur e alcohol) Comments No Sex and Gender Information Value Date Recorded Sex Assigned at Not on file Legal Sex Female 10:35 AM EST Gender Identity Not on file Sexual Orientation Not on file Obstetrics History Last Filed Vital Signs Vital Sign Reading Time Taken Comments Blood Pressure 118/82 02/05/2025 11:15 AM EDT Pulse 78 02/05/2025 11:15 AM EDT Temperature 36.4 C (97.5 F) 02/05/2025 11:15 AM EDT Respiratory Rate 14 02/05/2025 11:15 AM EDT Oxygen Saturation 98% 11/03/2024 10:55 AM EDT Inhaled Oxygen Concentration - - Weight 97.3 kg (214 lb 9.6 oz) 02/05/2025 11:15 AM EDT Height 170.2 cm (5' 7 ) 02/05/2025 11:15 AM EDT Body Mass Index 33.61 02/05/2025 11:15 AM EDT Plan of Treatment Upcoming Encounters Date Type Department Care Team (Late st Contact Info) Description 03/16/2025 8:20 AM EST Appointment Radiology Department - [address] [phone] 05/22/2025 11:00 AM EST Office Visit Adult [facility] [place] [address] [phone] Maia Swanson MD [address] [place] [address] Health Maintenance Due Date Last Done Comments DTaP,Tdap,and Td Vaccines (6 - Td or Tdap) 05/06/2014 05/06/2004, 01/26/1995, 08/10/1993, Additional history exists HPV Vaccines (1 - 3-dose SCDM series) 2017 Social Influencers of Health Screening 04/13/2022 Depression Screening 05/10/2024 COVID-19 Vaccine ( season) 2025 Influenza Vaccine (#1) 2025 Cervical Cancer Screening: HPV 01/15/2028 01/14/2023 RSV Immunization Adult Patients (1 - 1-dose 75+ series) 2065 IPV Vaccines Completed 09/22/1994, 11/09, 10/24/1991, Additional history exists MMR Vaccines Completed 12/03/1998, 0 08/1996, 08/10/1995, Additional history exists Varicella Vaccines [...] XRAY REPORT 01/05/2025 EXTERNAL XRAY REPORT 01/05/2025 HEPATITIS C SCREENING Routine 02/02/2023 HIV SCREENING [...] of4 resultswithin the time period is included. us Provider [facility] BLOOD ORDERABLES Fin al Result * HIV Screening (02/02/2023) Pathologist [facility] HIV Screening Abstracted Historical Provider HEALTH MAINTENANCE Final Result * Hepatitis C Screening (02/02/2023) Pathologist [facility] Hepatitis C Screening Abstracted Historical Provider HEALTH MAINTENANCE Final Result * Cervical Cancer Screening: HPV (01/14/2023) Pathologist [facility] Cervical Cancer Screening: HPV abstracted ,negative Historical Provider HEALTH MAINTENANCE Final Result from Last 3 Months or Most Recently Relevant to Health Maintenance [place] [phone] [facility] Care Teams Concrete Block Layer Relationship Specialty Start Date End Date Maia Swanson MD [address] [facility] [place] [address] PCP - General Internal Medicine 12/22/21
== END 2025-02-12 13:54 | disposition home or self-care (01) ==
LOC: HO.HBST 13:07
PROVIDERS: PCP Internal Medicine; Visit Provider Counselor Mental Health
DX: F43.20 Adjustment disorder, unspecified (principal); Z71.89 Other specified counseling
CPT/HCPCS: 90837

== ENCOUNTER → 2025-02-26 09:56 | Outpatient (REF) | payer OTHER, SELFPAY ==
--- NOTE | 2025-02-26 09:59 | CA_ITS ---
Acquisition Time: 2025-02-26 10:37:08 Total Exercise Time: 00:07:56 Test Indications: abn ekg, preop Medications: see h&p Protocol: DIRK Max HR: 164 BPM 88% of Pred: 186 BPM Max BP: 188/80 mmHG Max Work Load: 9.9 METS Exericse stress test with exercise 7 mins 56 secs of Dirk Protocol, achieving 88% MPHR, without any reported symptoms of CP, with isolated PACs, with normotensive response to exercise. Without any EKG changes meeting criteria for ischemia. In recovery, pt continued to feel well. Test reviewed with Dr. Adler. Referred By: Meño Barahona Electronically Signed By: Juventino Lewis
== END ==
LOC: HO.CARD 09:56
PROVIDERS: PCP Internal Medicine; Visit Provider Surgery
DX: R94.31 Abnormal electrocardiogram [ECG] [EKG] (principal)
CPT/HCPCS: 93017

== ENCOUNTER → 2025-02-26 09:59 | Outpatient (BNV) | payer OTHER, SELFPAY | PROVIDERS: PCP Internal Medicine | DX: I49.1 Atrial premature depolarization (principal) | CPT/HCPCS: 93016; 93018 ==

== ENCOUNTER 2025-03-01 14:25 | Outpatient (REF) | payer OTHER, SELFPAY ==
--- NOTE | ~2025-03-01 | US_ITS ---
EXAMINATION: US COMPLETE ABDOMEN WITH LIVER ELASTOGRAPHY CLINICAL INFORMATION: Obesity COMPARISON: None available. TECHNIQUE: Real-time imaging of the abdominal viscera. Noninvasive ultrasound liver fibrosis assessment is performed using Bill ElastPQ point quantification shear wave elastography (pSWE) with a C5-2 MHz transducer. Multiple elastography samples are obtained. FINDINGS: PANCREAS: The visualized pancreatic head and body are normal in appearance. The remainder of the pancreas is obscured from visualization by the overlying bowel gas. ABDOMINAL AORTA: The distal aorta is unremarkable. Proximal and mid aorta is obscured by bowel gas. INFERIOR VENA CAVA: Visualized portions are normal. LIVER: Mild increased lung, and echogenicity. Liver contour is normal.. No focal lesion or intrahepatic biliary duct dilatation. The right lobe measures 18.5 cm in length. The left lobe measures 11.7 cm in length. Portal flow is hepatopedal Shear wave liver elastography median stiffness is 0.9 m/s (reference: normal median stiffness is 1.3 m/s or less). IQR/median stiffness to assess sampling precision is 0.09 (reference: good quality data set is IQR/median stiffness of 0.15 or less). GALLBLADDER: The gallbladder is physiologically distended without evidence of stones, sludge, polyps, wall thickening or pericholecystic fluid. COMMON BILE DUCT: Normal in caliber measuring 0.3 cm in diameter. RIGHT KIDNEY: No hydronephrosis. No renal calculi or focal parenchymal lesions. The kidney measures 10.7 cm in maximum dimension. LEFT KIDNEY: No hydronephrosis. No renal calculi or focal parenchymal lesions. The kidney measures 10.7 cm in maximum dimension. SPLEEN: Unremarkable. The spleen measures 9 cm in maximum dimension. FREE FLUID: None seen. Study limited by bowel gas. US/US abdomen comp w elastography IMPRESSION: 1. Hepatomegaly. There is generalized increase in hepatic echotexture, consistent with fatty infiltration or hepatocellular disease. Please correlate clinically. No focal hepatic mass or intrahepatic biliary duct dilatation is seen. . 2. Liver elastography: Median stiffness 0.91 m/s, consistent with high probability of being normal. REFERENCE: Society of Radiologists in Ultrasound Liver Stiffness Thresholds (2020): LIVER STIFFNESS THRESHOLDS: *Liver Stiffness equal or less than 1.3 m/s: High probability of being normal. *Liver Stiffness less than 1.7 m/s: In the absence of other known clinical signs, rules out compensated advanced chronic liver disease. *Liver Stiffness 1.7-2.1 m/s: Suggestive of compensated advanced chronic liver disease but need further test for confirmation. *Liver Stiffness over 2.1 m/s: Rules in compensated advanced chronic liver disease. *Liver Stiffness over 2.4 m/s: Suggestive of clinically significant portal hypertension. QUALITY OF DATA SET: *IQR/Median value equal or less than 0.15 implies a quality data set. *IQR/Median value over 0.15 implies a poor quality data set. SIGNIFICANT CHANGE FROM PRIOR EXAM: Significant change if liver stiffness measurement is 10% or greater from prior exam. OTHER CONSIDERATIONS: The stage of liver fibrosis may be overestimated in the setting of acute hepatitis, liver inflammation, elevated liver function tests, hepatic vascular congestion, obstructive cholestasis, non-fasting state, and infiltrative diseases such as amyloidosis and lymphoma. In some patients with NAFLD, the liver stiffness thresholds for compensated advanced chronic liver disease may be lower. In causes other than viral hepatitis and NAFLD, liver stiffness thresholds are not well established. Electronically signed by: Jacques Aguila MD 03/02/2025 12:29 PM EDT
--- OUTSIDE RECORDS SUMMARY | 2025-03-01 18:18 | XMS_ITS | Clinical Summary ---
Author Organization [facility] [address] [place] [address] [place], [place] [address]y REMBERTO Galarza [phone] Phone Care Team Providers Care Choker Hooker Name Role Phone Maia Swanson MD Primary Care Provider [phone] Allergies No known active allergies Medications ibuprofen [...] 11:30 AM EDT Office Visit Adult Medicine [address] [phone] Chase Lin PA Degeneration of intervertebral disc of lumbar region with discogenic back pain and lower extremity pain (Primary Dx); Encounter for long-term (current) use of high-risk medication from Last 3 Months Immunizations Immunization Administration Dates Next Due DTaP (Infanrix) 6wks to less than 7yo ,08/10/1993,10/24/1991,1991 Hepatitis B (Uyomwmf-L-Jrrni , Recombivax HB-Adult) 19yo and older 07/09/1999,01/03/1999,12/03/1998 [...] tuck OTHER SURGICAL HISTORY 08/2021 Bilateral PROCEDURE: [facility] PREPARATION MOULAGE CUSTOM BREAST IMPLANT; COMMENT: [facility] 2013 PROCEDURE: HISTORICAL EYE SURGERY; [...] 8:20 AM EST Appointment Radiology Department - [address] [phone] 05/22/2025 11:00 AM EST Office Visit Adult [facility] [address] [phone] Maia Swanson MD [address] [place] [address] Health Maintenance Due Date Last Done Comments [...] al Result * HIV Screening (02/02/2023) Pathologist [facility] HIV Screening Abstracted Historical Provider HEALTH MAINTENANCE Final Result * Hepatitis C Screening (02/02/2023) Pathologist formerly [facility] Hepatitis C Screening Abstracted Historical Provider HEALTH MAINTENANCE Final Result * Cervical Cancer Screening: HPV (01/14/2023) Pathologist formerly [facility] Cervical Cancer Screening: HPV abstracted ,negative Historical Provider HEALTH MAINTENANCE Final Result from Last 3 Months or Most Recently Relevant to Health Maintenance [place] [id number] [facility] Care Teams Choker Hooker Relationship Specialty Start Date End Date Maia Swanson MD [address] [facility] [place] [phone] PCP - General Internal Medicine 12/22/21
--- OUTSIDE RECORDS SUMMARY | 2025-03-01 18:18 | XMS_ITS | Clinical Summary ---
Author Organization [facility] Address [address] [place] [phone] Phone Care Team Providers Care Carousel Operator Name Role Phone Pcp, Not Required [...] topic Medical Devices Not on file Insurance [facility] PPO CIGNA PPO [employer]IG[employer] PPO [employer] PPO [employer] PPO [employer] PPO [employer] PPO [employer] PPO [employer] PPO Care Teams Carousel Operator Relationship Specialty Start Date End Date Pcp, Not Required [address] [place] [id number] PCP - General 02/22/17 Greta Cummings DO [address] [place] [id number] Consulting Provider Rheumatology 03/12/17 Additional Source Comments The information contained in this document represents components of the legal health record. It is not the complete legal health record.[facility]
== END 2025-03-01 14:26 | disposition home or self-care (01) ==
LOC: HO.US 14:25
PROVIDERS: PCP Internal Medicine; Visit Provider Surgery
DX: E66.9 Obesity, unspecified (principal); Z68.35 Body mass index [BMI] 35.0-35.9, adult; K21.9 Gastro-esophageal reflux disease without esophagitis
CPT/HCPCS: 76700; 76981

== ENCOUNTER → 2025-03-01 14:27 | Outpatient (BNV) | payer OTHER, SELFPAY | PROVIDERS: PCP Internal Medicine; Visit Provider Radiology Diagnostic Ultrasound | DX: R16.0 Hepatomegaly, not elsewhere classified (principal) | CPT/HCPCS: 76700 ==

== ENCOUNTER 2025-03-20 09:01 | Outpatient (REF) | payer OTHER, SELFPAY | END 2025-03-20 09:02 | disposition home or self-care (01) | LOC: HO.LNP 09:01 | PROVIDERS: Surgery; PCP Internal Medicine; Visit Provider Physician Assistant Surgical | DX: K21.9 Gastro-esophageal reflux disease without esophagitis (principal); E66.9 Obesity, unspecified; Z68.35 Body mass index [BMI] 35.0-35.9, adult | CPT/HCPCS: 83013 ==